=== PATIENT | female | born 1945 | race African-American/Black ===

== ENCOUNTER 2022-08-21 14:28 | Inpatient (IN) | payer MEDICAID, SELFPAY ==
[2022-08-21] VITALS (14 sets, daily range): BP systolic 172–248; BP diastolic 76–107; PULSE 69–97; RESP 16–24; TEMP 36.4–37.1; O2SAT 95–98; BMI 23.8; BMI 24.3
--- NOTE | 2022-08-21 | ECG_ITS ---
Test Reason : hypertension Blood Pressure : / mmHG Vent. Rate : 090 BPM Atrial Rate : 090 BPM P-R Int : 154 ms QRS Dur : 088 ms QT Int : 376 ms P-R-T Axes : 042 -03 075 degrees QTc Int : 459 ms Normal sinus rhythm Minimal voltage criteria for LVH, may be normal variant ( [place] product ) Nonspecific T wave abnormality Abnormal ECG No previous ECGs available Referred By: Generic ED Physician Electronically Signed By:FLAVIO OCONNELL MD
--- NOTE | ~2022-08-21 | CT_ITS ---
EXAMINATION: CT HEAD WITHOUT CONTRAST CLINICAL INFORMATION: Hypertension COMPARISON: None TECHNIQUE: Imaging was performed from the skull base to vertex without intravenous administration of contrast. This CT examination was performed using dose optimization techniques as appropriate, variously including the following: *Automated exposure control *Adjustment of mA and/or kV according to patient size (this includes techniques or standardized protocols for targeted exams where dose is matched to indication/reason for exam; i.e. extremities or head) *Use of iterative reconstruction technique Total exam dose length product: 675 mGy-cm FINDINGS: No intra or extra-axial fluid collection, hemorrhage, or mass. No ventriculomegaly. No midline shift or herniation. Basal cisterns are patent. Aleman-white matter differentiation is maintained. No territorial encephalomalacia. Proportional prominence of the ventricles and sulcal spaces is consistent with mild volume loss. Patchy periventricular and deep white matter hypoattenuation is consistent with moderate small vessel ischemic changes. Focus of hypoattenuation in the right lentiform nucleus consistent with prior lacunar infarct versus dilated perivascular space. No calvarial fracture or soft tissue abnormality. The mastoid air cells and visualized portions of the paranasal sinuses are well aerated. CT/CT head/brain wo IV con IMPRESSION: 1. No acute intracranial pathology. 2. Mild cerebral atrophy and moderate chronic small vessel ischemic white matter change.
[2022-08-21 16:42] LABS: MANUAL DIFF FLAG NO
[2022-08-21 16:44] LABS: Basophils Absolute Auto 0.1 X10*3/uL (0.0-0.2); Basophils Percent Auto 0.8 % (0-2); Eosinophils Absolute Auto 0.2 X10*3/uL (0.0-0.4); Eosinophils Percent Auto 2.8 % (0-4); Hematocrit 43.3 % (37.0-47.0); Hemoglobin 13.8 g/dl (12.0-16.0); Imm Gran Abs Auto 0.01 X10*3/uL (0.00-0.03); Imm Gran Pct Auto 0.1 % (0.0-0.4); Lymphocytes Absolute Auto 2.1 X10*3/uL (1.2-4.9); Lymphocytes Percent Auto 26.4 % (20-40); Mean Corpuscular HGB Conc 31.9 g/dl (31.0-35.0); Mean Corpuscular Hemoglobin 29.2 pg (27.0-33.0); Mean Corpuscular Volume 91.5 fL (80.0-98.0); Mean Platelet Volume 10.9 fL (9.4-12.3); Monocytes Absolute Auto 0.7 X10*3/uL (0.1-1.2); Monocytes Percent Auto 8.8 % (2-11); Neutrophils Absolute Auto 4.9 x10*3/uL (2.0-8.3); Neutrophils Percent Auto 61.1 % (45-73); Platelet Count 262 X10*3/uL (160-400); Red Blood Count 4.73 X10*6/uL (4.20-5.50)
[2022-08-21 17:04] LABS: Alanine Aminotransferase 18 U/L (0-31); Albumin Level 4.6 g/dL (3.5-5.0); Alkaline Phosphatase 153 U/L (39-117); Anion Gap 19 (12-20); Aspartate Amino Transferase 20 U/L (5-31); Bilirubin Direct < 0.2 mg/dL (0.0-0.5); Bilirubin Total 0.3 mg/dL (0.0-1.0); Blood Urea Nitrogen 17 mg/dL (9-16); Calcium 9.8 mg/dL (8.4-10.2); Carbon Dioxide 22 mmol/L (22-29); Chloride 102 mmol/L (96-108); Creatinine Clr Calc Pharmacy 41.4; Estimated Glomerular Filt Rate 49; Glucose Random 199 mg/dL (60-115); Lipase 16 U/L (8-78); Potassium 4.2 mmol/L (3.3-5.1); Sodium 139 mmol/L (135-145); Total Protein 8.2 g/dL (6.5-8.0); Troponin-I High Sensitivity 7.8 ng/L (<3.5-17.0)
--- NOTE | 2022-08-21 17:57 | ED.GENADULT ---
HPI - General Adult General Chief complaint: General Medical Stated complaint: high bp Time Seen by Provider: 08/21/22 17:51 Source: patient Mode of arrival: ambulatory Limitations: language barrier History of Present Illness HPI narrative: 77-year-old female presents to the emergency department from urgent care for a blood pressure of 224/98 earlier today. Patient reports she has not taken her blood pressure medication in over month due to not being able to get in with a PCP. Her daughter reports that she gave her some of her medication last night, after taking her blood pressure and reporting it was 200. Her daughter reports she gave her amlodipine 5 mg and losartan- hydrochlorothiazide. Patient denies headache, vision changes, chest pain, shortness of breath, weakness, changes in speech, dizziness, nausea, vomiting To note patient speaks Creole, offered patient registered nurse bone marrow transplant however refused, tells me that family member/daughter who is at the bedside would prefer to translate Related Data Allergies Allergy/AdvReac Type Severity Reaction Status Date / Time No Known Allergies Allergy Verified 08/21/22 15:54 Review of Systems Review of Systems: Constitutional : No Weight loss, No Fever, No Chills, No Fatigue, No Malaise ENT/Mouth : No sore throat, No Rhinorrhea Eyes: No Eye Pain, No Swelling, No Redness Cardiovascular : No Chest Pain, No SOB, No Dyspnea on Exertion, No Orthopnea, No Edema, No Palpitations Respiratory : No Cough, No Sputum, No Wheezing Gastrointestinal : No Nausea, No Vomiting, No Diarrhea, No Constipation, No abdominal Pain, No Hematochezia, No Melena Genitourinary : No Dysuria, No Urinary Frequency, No Hematuria, Musculoskeletal : No joint pain, No Myalgias, No Joint Swelling Skin : No Skin Lesions, No rash Neuro : No Weakness, No Numbness, No Dizziness, No Headache Psych : No Anxiety/Panic, No Depression All other systems reviewed and are negative Yes all other systems are reviewed and are negative PMFSH Past Medical History Attestation statement: The following information was validated with the patient. Source: old records reviewed and nursing notes reviewed Social History Social History Advance Directives: No Advance Directives Information Provided: No Physical Exam ED Vital Signs: Vital Signs - 24 hr 08/21/22 15:51 08/21/22 18:12 08/21/22 19:28 Temperature 97.6 F Pulse Rate 97 88 77 Respiratory Rate 20 18 18 Blood Pressure 240/94 H 239/107 H 230/99 H Pulse Oximetry 98 98 98 Oxygen Delivery Method Room Air Room Air Room Air 08/21/22 19:36 08/21/22 21:22 08/21/22 21:35 Temperature Pulse Rate 72 76 69 Respiratory Rate 16 23 H Blood Pressure 248/101 H 212/76 H 195/78 H Pulse Oximetry 97 98 98 Oxygen Delivery Method Room Air Room Air Room Air 08/21/22 21:44 08/21/22 22:34 Temperature Pulse Rate 72 72 Respiratory Rate 19 21 H Blood Pressure 208/80 H 216/104 H Pulse Oximetry 98 95 Oxygen Delivery Method Room Air Room Air BMI result Body Mass Index 24.3 BP noted to be elevated at 240/94. Appearance: Alert.? Oriented X3.? No acute distress.? Head: Normocephalic, atraumatic, no step-offs or deformities Eyes: Pupils equal, round and reactive to light.?EOMI pain free. No nystagmus Neck: Normal inspection.? Neck supple.? CVS: Normal heart rate and rhythm.? Pulses normal.? Respiratory: No respiratory distress.? Breath sounds normal.? Abdomen: Soft and nontender.? Skin: Skin warm and dry.? Normal skin color.? Normal skin turgor.? Extremities: No lower extremity edema.? No calf ttp. 5/5 strength to bilateral upper and lower extremities Back: No midline tenderness, no C-spine tenderness, full range of motion, no CVA tenderness bilaterally Neuro: Oriented X 3.? No motor deficit.? No sensory deficit. CN 2-12 intact. Normal finger to nose. Normal tandem gait with normal coordination. Normal rapid alternating movements. Course Reevaluation(s) Reevaluation #1: CBC within normal limits. Chemistry with no acute findings. Troponin negative, EKG nonischemic. No signs of ACS. Head CT with no acute findings. Patient's blood pressure not improving despite administering home meds. At this time 5 mg of IV labetalol will be administered. Patient remains asymptomatic no headache, vision changes, dizziness. Time: 19:15 Reevaluation #2: Pressure still elevated will give another 5 of labetalol and nitro paste. Time: 21:23 Reevaluation #3: Patient will be admitted to the ICU to Time: 23:03 Medical Decision Making MDM Narrative Medical decision making narrative: 77-year-old female presents from urgent care due to a blood pressure of 24 earlier today. Patient has not taken her blood pressure medication in over a month. Benign physical exam. Denies vision changes or headaches. CT pending. Lab Data Result diagrams: 08/21/22 16:39 08/21/22 16:39 Labs: Lab Results 08/21/22 08/21/22 08/21/22 Range/Units 16:39 16:39 16:39 WBC 8.0 (4.8-10.8) X10*3/uL RBC 4.73 (4.20-5.50) X10*6/uL Hgb 13.8 (12.0-16.0) g/dl Hct 43.3 (37.0-47.0) % MCV 91.5 (80.0-98.0) fL MCH 29.2 (27.0-33.0) pg MCHC 31.9 (31.0-35.0) g/dl RDW 13.0 (11.0-16.0) % Plt Count 262 (160-400) X10*3/uL MPV 10.9 (9.4-12.3) fL Immature Gran % (Auto) 0.1 (0.0-0.4) % Neut % (Auto) 61.1 (45-73) % Lymph % (Auto) 26.4 (20-40) % [place] % (Auto) 8.8 (2-11) % Eos % (Auto) 2.8 (0-4) % Baso % (Auto) 0.8 (0-2) % Lymph # (Auto) 2.1 (1.2-4.9) X10*3/uL [place] # (Auto) 0.7 (0.1-1.2) X10*3/uL Eos # (Auto) 0.2 (0.0-0.4) X10*3/uL Baso # (Auto) 0.1 (0.0-0.2) X10*3/uL Abs Immat Gran (auto) 0.01 (0.00-0.03) X10*3/uL Absolute Neuts (auto) 4.9 (2.0-8.3) x10*3/uL Absolute Nucleated RBC 0.000 (0.0-0.012) X10*3/uL Nucleated RBC % (auto) 0.0 (0.0-0.2) /100WBC Sodium 139 (135-145) mmol/L Potassium 4.2 (3.3-5.1) mmol/L Chloride 102 (96-108) mmol/L Carbon Dioxide 22 (22-29) mmol/L Anion Gap 19 (12-20) BUN 17 H (9-16) mg/dL Creatinine 1.07 (0.5-1.4) mg/dL Estim Creat Clear Calc 41.4 Estimated GFR 49 Random Glucose 199 H (60-115) mg/dL Calcium 9.8 (8.4-10.2) mg/dL Total Bilirubin 0.3 (0.0-1.0) mg/dL Direct Bilirubin < 0.2 (0.0-0.5) mg/dL AST 20 (5-31) U/L ALT 18 (0-31) U/L Alkaline Phosphatase 153 H (39-117) U/L Troponin I High Sens 7.8 (<3.5-17.0) ng/L Total Protein 8.2 H (6.5-8.0) g/dL Albumin 4.6 (3.5-5.0) g/dL Lipase 16 (8-78) U/L // Range/Units 20:40 WBC (4.8-10.8) X10*3/uL RBC (4.20-5.50) X10*6/uL Hgb (12.0-16.0) g/dl Hct (37.0-47.0) % MCV (80.0-98.0) fL MCH (27.0-33.0) pg MCHC (31.0-35.0) g/dl RDW (11.0-16.0) % Plt Count (160-400) X10*3/uL MPV (9.4-12.3) fL Immature Gran % (Auto) (0.0-0.4) % Neut % (Auto) (45-73) % Lymph % (Auto) (20-40) % [place] % (Auto) (2-11) % Eos % (Auto) (0-4) % Baso % (Auto) (0-2) % Lymph # (Auto) (1.2-4.9) X10*3/uL [place] # (Auto) (0.1-1.2) X10*3/uL Eos # (Auto) (0.0-0.4) X10*3/uL Baso # (Auto) (0.0-0.2) X10*3/uL Abs Immat Gran (auto) (0.00-0.03) X10*3/uL Absolute Neuts (auto) (2.0-8.3) x10*3/uL Absolute Nucleated RBC (0.0-0.012) X10*3/uL Nucleated RBC % (auto) (0.0-0.2) /100WBC Sodium (135-145) mmol/L Potassium (3.3-5.1) mmol/L Chloride (96-108) mmol/L Carbon Dioxide (22-29) mmol/L Anion Gap (12-20) BUN (9-16) mg/dL Creatinine (0.5-1.4) mg/dL Estim Creat Clear Calc Estimated GFR Random Glucose (60-115) mg/dL Calcium (8.4-10.2) mg/dL Total Bilirubin (0.0-1.0) mg/dL Direct Bilirubin (0.0-0.5) mg/dL AST (5-31) U/L ALT (0-31) U/L Alkaline Phosphatase (39-117) U/L Troponin I High Sens 7.7 (<3.5-17.0) ng/L Total Protein (6.5-8.0) g/dL Albumin (3.5-5.0) g/dL Lipase (8-78) U/L Critical Care Time Critical Care Time Critical Care Time: Yes Total Critical Care Time: 45 Attestation: I attest to this time spent taking care of the patient, obtaining history, physical, reviewing labs, imaging, speaking to my attending, speaking to specialist. Discharge Plan Discharge Clinical Impression: Hypertensive urgency Patient Disposition: Admitted As Inpatient
[2022-08-21] MEDS: Losartan Potassium 50 MG TABLET PO (18:08)
[2022-08-21] MEDS: hydroCHLOROthiazide 12.5 MG TABLET PO (18:08)
[2022-08-21] MEDS: amLODIPine Besylate 5 MG TABLET PO (18:08)
--- NOTE | 2022-08-21 18:22 | PC.NURSE ---
Pt resting comfortably on stretcher at this time. daughter at bedside assisting with translation. Pt took medications with no issue. Blood pressure in 230s, PA Karen aware. Pt states she is in no pain and is comfortable at this time
[2022-08-21] MEDS: Labetalol HCL 100 MG/20 ML VIAL IVPUSH ×2 (19:33→21:28)
[2022-08-21 21:06] LABS: Troponin-I High Sensitivity 7.7 ng/L (<3.5-17.0)
[2022-08-21] MEDS: Nitroglycerin 2 % Oint 1 GM Packet 0.5 INCH TRANSDERMA (21:28)
--- NOTE | 2022-08-21 21:33 | PC.NURSE ---
pt blood pressure continues to be elevated in the 200s, ELIZABETH Jones aware. More medications ordered and administered per MAR (Nitro cream and 5mg Labetalol). Will continue to monitor blood pressure for improvement. Pt states she is no pain and is comfortable at this time
[2022-08-21] MEDS: niCARdipine HCL 25 MG in 0.9 % Sodium Chloride 250 ML 52 MG IVCONT (23:21)
--- NOTE | 2022-08-21 23:54 | P.HPCC_ITS ---
History of Present Illness Date of Service: 08/21/22 Attending physician on admission: Gary Carlson Chief Complaint: high blood pressure Patient is a 76? year old female [place] Creole speaking only, with a past medical history of hypertension? who presented to the emergency room? with high blood pressure from urgent care.? According to the daughter? patient lives with granddaughter,? and reports several days of not being compliant with medication regimen.? Patient denies? headache, vision changes, chest pain, shortness a breath, weakness, dizziness,? nausea and vomiting. Blood pressure in the emergency room 239/107,? other vital signs within normal limits. ? Blood pressure continued to be elevated despite administration of amlodipine 5, losartan 50, hydrochlorothiazide 12.5,? nitro patch 0.5inch and labetalol 10.? Require nicardipine drip? initiation ? Patient being admitted to ICU for hypertensive urgency requiring nicardipine drip Review of Systems Review of Systems: as per HPI Yes all other systems are reviewed and are negative [facility] Past Medical History Medical History (Updated 08/22/22 @ 00:38 by Ciro Cabrera NP) Hypertension Social History Social History Advance Directives: No Advance Directives Information Provided: No Meds Allergies Allergy/AdvReac Type Severity Reaction Status Date / Time No Known Allergies Allergy Verified 08/21/22 15:54 Active Medications: Current Medications Enoxaparin Sodium (Enoxaparin Sodium 40 Mg/0.4 Ml Syringe) 40 mg SUBCUT BEDTIME ANCELMO Nicardipine HCl 25 mg/ Sodium (Chloride) 260 mls @ 0 mls/hr IVCONT .Q0M ANCELMO; Protocol Last Titration: 08/21/22 23:35 Dose: 3 mg/hr, 31.2 mls/hr Physical Exam Vital Signs: Vital Signs: Last Vital Signs Temp 98.7 F 08/21/22 23:33 Pulse 76 08/21/22 23:35 Resp 19 08/21/22 23:33 BP 172/79 H 08/21/22 23:35 Pulse Ox 96 08/21/22 23:33 O2 Del Method 08/21/22 23:24 BMI result Body Mass Index 24.3 ?General:? Alert oriented x person and place, no date. speaking full sentences.? Speech is well articulated.? Following all commands. ?HEENT:? Head is normocephalic, atraumatic, pupils equal round reactive to light accommodation bilaterally.? Extraocular movements appear intact.? Buccal mucosa is dry, Neck is supple without lymphadenopathy. ?Cardiac:? Clear S1-S2, no murmurs rubs or gallops. ?Pulmonary:? Clear to auscultation, no wheezes, rales or rhonchi. ?Abdomen:? Positive bowel sounds in all 4 quadrants.? Soft, nontender, no rebound or guarding.?? ?Musculoskeletal:? Moving all 4 extremities upon request, , there is no crepitus or tenderness.? The strength is 5/5 bilaterally and throughout all 4 extremities.? walking steady from stretcher to bed ?Skin:? Intact, no lesions, edema, erythema, clubbing or cyanosis.? No ulcers. ?Neurologic:? cranial nerves 2-12 are grossly intact.? No focal deficits noted.Motor strength as above.?? Vascular:? 2+ pulses upper and lower extremities distally.? Results Labs CBC and Chem 7: 08/21/22 16:39 08/21/22 16:39 Labs: Laboratory Results - last 24 hr 08/21/22 08/21/22 08/21/22 16:39 16:39 16:39 MCV 91.5 MCH 29.2 MCHC 31.9 RDW 13.0 Plt Count 262 MPV 10.9 Immature Gran % (Auto) 0.1 Neut % (Auto) 61.1 Lymph % (Auto) 26.4 [place] % (Auto) 8.8 Eos % (Auto) 2.8 Baso % (Auto) 0.8 Lymph # (Auto) 2.1 [place] # (Auto) 0.7 Eos # (Auto) 0.2 Baso # (Auto) 0.1 Abs Immat Gran (auto) 0.01 Absolute Neuts (auto) 4.9 Absolute Nucleated RBC 0.000 Nucleated RBC % (auto) 0.0 Anion Gap 19 Estim Creat Clear Calc 41.4 Estimated GFR 49 Random Glucose 199 H Calcium 9.8 Total Bilirubin 0.3 Direct Bilirubin < 0.2 AST 20 ALT 18 Alkaline Phosphatase 153 H Troponin I High Sens 7.8 Total Protein 8.2 H Albumin 4.6 Lipase 16 08/21/22 20:40 MCV MCH MCHC RDW Plt Count MPV Immature Gran % (Auto) Neut % (Auto) Lymph % (Auto) [place] % (Auto) Eos % (Auto) Baso % (Auto) Lymph # (Auto) [place] # (Auto) Eos # (Auto) Baso # (Auto) Abs Immat Gran (auto) Absolute Neuts (auto) Absolute Nucleated RBC Nucleated RBC % (auto) Anion Gap Estim Creat Clear Calc Estimated GFR Random Glucose Calcium Total Bilirubin Direct Bilirubin AST ALT Alkaline Phosphatase Troponin I High Sens 7.7 Total Protein Albumin Lipase Imaging Radiologist's Impressions: Impressions Head CT 08/21/22 18:07 IMPRESSION: 1. No acute intracranial pathology. 2. Mild cerebral atrophy and moderate chronic small vessel ischemic white matter change. Assessment and Plan (1) Hypertensive urgency: Status: Acute (2) Hypertension: Status: Acute Plan 76-year-old female? with? past medical history of hypertension and history of? medication noncompliance admitted with hypertensive? urgency Plan: Neuro:? ? No acute issues Cardiac: ? Hypertensive urgency,? patient? has history of noncompliance,? possible dementia, She is asymptomatic. ? Continue Cardene drip,? wean off as tolerated. Avoid rapid decrease in BP. Per daughter, pt SBP ranges 160-170s. Will avoid systolic < 160s. Pulmonary:? No acute issues. Renal: ? ? no acute issues Endo:? No acute issues.? GI:? No acute issues. ID: ? no acute issues Heme/Onc:? No acute issues. Psych:? No acute issues. Miscellaneous:? No acute issues. Prophylaxis:? ? Lovenox Diet: cardiac Critical care time spent:? 30 minutes Critical Care Time Critical Care Time (minutes): 30
[2022-08-22] VITALS (23 sets, daily range): BP systolic 134–186; BP diastolic 49–86; PULSE 55–95; RESP 12–24; TEMP 36.2–37.3; O2SAT 93–98; BMI 23.4
[2022-08-22] MEDS: Enoxaparin Sodium 40 MG/0.4 ML SYRINGE SUBCUT ×2 (00:12→21:20)
[2022-08-22 05:41] LABS: MANUAL DIFF FLAG NO
[2022-08-22 05:46] LABS: Basophils Absolute Auto 0.1 X10*3/uL (0.0-0.2); Basophils Percent Auto 0.6 % (0-2); Eosinophils Absolute Auto 0.3 X10*3/uL (0.0-0.4); Eosinophils Percent Auto 3.2 % (0-4); Hematocrit 39.2 % (37.0-47.0); Hemoglobin 12.9 g/dl (12.0-16.0); Imm Gran Abs Auto 0.03 X10*3/uL (0.00-0.03); Imm Gran Pct Auto 0.3 % (0.0-0.4); Lymphocytes Absolute Auto 2.4 X10*3/uL (1.2-4.9); Mean Corpuscular HGB Conc 32.9 g/dl (31.0-35.0); Mean Corpuscular Hemoglobin 29.8 pg (27.0-33.0); Mean Corpuscular Volume 90.5 fL (80.0-98.0); Monocytes Percent Auto 10.9 % (2-11); Neutrophils Absolute Auto 5.2 x10*3/uL (2.0-8.3); Platelet Count 276 X10*3/uL (160-400); Red Blood Count 4.33 X10*6/uL (4.20-5.50); Red Cell Distribution Width 12.8 % (11.0-16.0)
[2022-08-22 06:17] LABS: Albumin Level 4.1 g/dL (3.5-5.0); Anion Gap 16 (12-20); Blood Urea Nitrogen 13 mg/dL (9-16); Calcium 9.4 mg/dL (8.4-10.2); Carbon Dioxide 25 mmol/L (22-29); Chloride 103 mmol/L (96-108); Creatinine Clr Calc Pharmacy 47.9; Estimated Glomerular Filt Rate 58; Glucose Random 120 mg/dL (60-115); Phosphorus 5.6 mg/dL (2.7-4.5); Potassium 3.8 mmol/L (3.3-5.1); Sodium 140 mmol/L (135-145)
[2022-08-22] MEDS: amLODIPine Besylate 10 MG TABLET PO (08:44)
[2022-08-22] MEDS: Losartan Potassium 50 MG TABLET PO (08:44)
--- NOTE | 2022-08-22 09:19 | PHA.MEDREC ---
Pharmacy Consult ? Medication Reconciliation Pharmacy has completed the medication reconciliation. Patient's daugther report amlopdipine 5 mg and losartan-HCTZ 12.5. State meds were from [facility] on [address] but when I called [facility] they had nothing on record. Sheree Young, PharmD
--- NOTE | 2022-08-22 09:51 | MHC.CM.PN ---
Attempted to meet with pt to review d/c planning. Pt is [place] Creole speaking only: Interpreting services having difficulty finding assistance. Call placed to pt's dtr Eryn with whom pt resides. She states pt is independent and only requires set up and light cueing. No DME use. Eryn provides transportation. PCP is new at [facility] - last appt 08/21. No HCP or MOLST on file - Dtr to address w/PCP. - Vax x2 - no booster. D/C plan is for a return to home with existing family support. Eryn will transport. CM to follow.
--- NOTE | 2022-08-22 11:05 | P.PNCC_ITS ---
Subjective Subjective Date of Service: 08/22/22 Interval History: 76-year-old lady with underlying history of hypertension and poor compliance with outpatient antihypertensive regimen admitted on 08/21/2022 with hypertensive urgency requiring control with nicardipine drip. No events overnight. Titrated off nicardipine drip to p.o. antihypertensives. Critical Care Time (minutes): 0 Physical Exam Vital Signs: Vital Signs: Last Vital Signs Temp 98.7 F 08/22/22 08:00 Pulse 75 08/22/22 10:00 Resp 17 08/22/22 10:00 BP 166/64 H 08/22/22 10:00 Pulse Ox 93 08/22/22 10:00 O2 Del Method 08/22/22 10:00 BMI result Body Mass Index 23.4 Const: General: no acute distress, alert and awake Eyes: Sclerae: sclerae normal EOM: EOMs intact bilaterally Neck: Neck: Yes no lymphadenopathy, Yes trachea midline and Yes supple Resp: Effort & Inspection: normal respiratory effort and no respiratory distress Auscultation: clear to auscultation bilaterally Cardio: Rate: regular rate Rhythm: regular rhythm Heart sounds: no gallops, no murmurs and no rubs GI: Palpation (GI): Soft to palpation and Other GI palpation findings present ( Nontender) Auscultation: normal bowel sounds Extrem: General: Yes no pedal edema, No clubbing and No cyanosis Objective Data Labs CBC & Chem 7: 08/22/22 05:16 08/22/22 05:16 Labs: Laboratory Results - last 24 hr 08/21/22 08/21/22 08/21/22 16:39 16:39 16:39 WBC 8.0 RBC 4.73 Hgb 13.8 Hct 43.3 MCV 91.5 MCH 29.2 MCHC 31.9 RDW 13.0 Plt Count 262 MPV 10.9 Immature Gran % (Auto) 0.1 Neut % (Auto) 61.1 Lymph % (Auto) 26.4 [place] % (Auto) 8.8 Eos % (Auto) 2.8 Baso % (Auto) 0.8 Lymph # (Auto) 2.1 [place] # (Auto) 0.7 Eos # (Auto) 0.2 Baso # (Auto) 0.1 Abs Immat Gran (auto) 0.01 Absolute Neuts (auto) 4.9 Absolute Nucleated RBC 0.000 Nucleated RBC % (auto) 0.0 Sodium 139 Potassium 4.2 Chloride 102 Carbon Dioxide 22 Anion Gap 19 BUN 17 H Creatinine 1.07 Estim Creat Clear Calc 41.4 Estimated GFR 49 Random Glucose 199 H Calcium 9.8 Phosphorus Magnesium Total Bilirubin 0.3 Direct Bilirubin < 0.2 AST 20 ALT 18 Alkaline Phosphatase 153 H Troponin I High Sens 7.8 Total Protein 8.2 H Albumin 4.6 Lipase 16 08/21/22 08/22/22 08/22/22 20:40 05:16 05:16 WBC 9.0 RBC 4.33 Hgb 12.9 Hct 39.2 MCV 90.5 MCH 29.8 MCHC 32.9 RDW 12.8 Plt Count 276 MPV 12.0 Immature Gran % (Auto) 0.3 Neut % (Auto) 58.0 Lymph % (Auto) 27.0 [place] % (Auto) 10.9 Eos % (Auto) 3.2 Baso % (Auto) 0.6 Lymph # (Auto) 2.4 [place] # (Auto) 1.0 Eos # (Auto) 0.3 Baso # (Auto) 0.1 Abs Immat Gran (auto) 0.03 Absolute Neuts (auto) 5.2 Absolute Nucleated RBC 0.000 Nucleated RBC % (auto) 0.0 Sodium 140 Potassium 3.8 Chloride 103 Carbon Dioxide 25 Anion Gap 16 BUN 13 Creatinine 0.94 Estim Creat Clear Calc 47.9 Estimated GFR 58 Random Glucose 120 H Calcium 9.4 Phosphorus 5.6 H Magnesium 2.0 Total Bilirubin Direct Bilirubin AST ALT Alkaline Phosphatase Troponin I High Sens 7.7 Total Protein Albumin 4.1 Lipase Progress Note: A&P Assessment and plan (1) Hypertensive urgency: Status: Acute Plan Assessment: 76-year-old lady with underlying hypertension and poor medication compliance admitted with hypertensive urgency briefly requiring nicardipine drip now titrated off to p.o. antihypertensives. Plan: Neuro: No acute issues. Cardiac: Hypertensive urgency, resolved. Titrated off nicardipine drip. Continue p.o. antihypertensives. Pulmonary: No acute issues. Renal: No acute issues. Endo: No acute issues. GI: No acute issues. ID: No acute issues Heme/Onc: No acute issues. Psych: No acute issues. Miscellaneous: No acute issues. Prophylaxis: Heparin Diet: Regular Quality Stroke Does the patient have a stroke diagnosis?: No VTE Prior VTE?: No VTE Risk Level:: Medical - moderate - high VTE Device Contraindication: Treatment Not Indicated VTE Drug Contraindication: N/A - Med Ordered
--- NOTE | 2022-08-22 14:07 | PC.NURSE ---
1400-report called to EMILY Lira in [place]
[2022-08-23] VITALS: BP 174/79; PULSE 78; RESP 15; TEMP 36.9; O2SAT 98
[2022-08-23 03:26] VITALS: BP 169/75; PULSE 58; RESP 14; TEMP 36.7; O2SAT 97
[2022-08-23 06:00] VITALS: BMI 23.6
[2022-08-23 07:57] VITALS: BP 154/69; PULSE 76; RESP 16; TEMP 37.4; O2SAT 97
--- NOTE | 2022-08-23 09:09 | MHC.CM.PN ---
Addendum entered by Alejandra Solitario 08/23/22 12:10: Patient is ready for discharge today. Patient is discharged to home self care. She has arranged for family to provide transportation home. Original Note: Female 76 DX Hypertensive urgency. She is an ICU transfer. DP Home self care. Patients dtr will provide transportation at discharge.
[2022-08-23] MEDS: amLODIPine Besylate 10 MG TABLET PO (10:35)
[2022-08-23] MEDS: Losartan Potassium 50 MG TABLET 100 MG PO (10:36)
--- NOTE | 2022-08-23 11:43 | P.DS_ITS ---
DS: Providers Provider Date of Service: 08/23/22 Date of admission: 08/21/22 23:12 Date of discharge: 08/23/22 Primary care physician: Unknown Physician DS: Diagnosis Discharge Diagnosis (1) Hypertensive urgency: Status: Acute (2) Essential hypertension: Status: Acute DS: Summary Hospital Course Hospital Course: from admission H+P by acls specialist YAN Cabrera, 08/21/22: Patient is a 76? year old female French Creole speaking only, with a past medical history of hypertension? who presented to the emergency room? with high blood pressure from urgent care.? According to the daughter? patient lives with granddaughter,? and reports several days of not being compliant with medication regimen.? Patient denies? headache, vision changes, chest pain, shortness a breath, weakness, dizziness,? nausea and vomiting. Blood pressure in the emergency room 239/107,? other vital signs within normal limits. ? Blood pressure continued to be elevated despite administration of amlodipine 5, losartan 50, hydrochlorothiazide 12.5,? nitro patch 0.5inch and labetalol 10.? Require nicardipine drip? initiation ? Patient being admitted to ICU for hypertensive urgency requiring nicardipine drip She was titrated off the nicardipine drip to oral hypertensives, amlodipine plus losartan. She had no headache or chest pain. No renal insufficiency and no troponin elevation. No signs of stroke. She was discharged home with prescriptions for amlodipine 10 mg/d and losartan 100 mg/d and counseled in her cachil dehe language French Marco through vidoe interpretation on the importance of daily adherence and follow-up with a primary care doctor [she has a doctor at [facility] in [place]]. Time Spent with Patient Time attestation: Total time spent providing and/or coordinating discharge services: 35 Discharge coordination time: Greater than 30 minutes Quality: Safe Use of Opioids Does Pt have an Active Cancer Diagnosis on the Problem List?: No Quality: Stroke Does the patient have a stroke diagnosis?: No Physical Exam Vital Signs: Vital Signs: Last Vital Signs Temp 99.3 F 08/23/22 07:57 Pulse 76 08/23/22 07:57 Resp 16 08/23/22 07:57 BP 154/69 H 08/23/22 07:57 Pulse Ox 97 08/23/22 07:57 O2 Del Method 08/23/22 07:57 BMI result Body Mass Index 23.6 Gen: in no acute distress HEENT: sclera anicteric, moist mucus membranes Neck: supple Lungs: clear to auscultation bilaterally Heart: regular rate and rhythm, no murmurs Abd: soft, non-tender, non-distended Ext: no edema Skin: warm/well-perfused Neuro: alert and oriented x3, no focal findings Psych: appropriate affect DS: Data Data Completed and Pending Completed studies during hospitalization [Text1]: Laboratory Results WBC 9.0 X10*3/uL (4.8-10.8) 08/22/22 05:16 RBC 4.33 X10*6/uL (4.20-5.50) 08/22/22 05:16 Hgb 12.9 g/dl (12.0-16.0) 08/22/22 05:16 Hct 39.2 % (37.0-47.0) 08/22/22 05:16 MCV 90.5 fL (80.0-98.0) 08/22/22 05:16 MCH 29.8 pg (27.0-33.0) 08/22/22 05:16 MCHC 32.9 g/dl (31.0-35.0) 08/22/22 05:16 RDW 12.8 % (11.0-16.0) 08/22/22 05:16 Plt Count 276 X10*3/uL (160-400) 08/22/22 05:16 MPV 12.0 fL (9.4-12.3) 08/22/22 05:16 Immature Gran % (Auto) 0.3 % (0.0-0.4) 08/22/22 05:16 Neut % (Auto) 58.0 % (45-73) 08/22/22 05:16 Lymph % (Auto) 27.0 % (20-40) 08/22/22 05:16 [place] % (Auto) 10.9 % (2-11) 08/22/22 05:16 Eos % (Auto) 3.2 % (0-4) 08/22/22 05:16 Baso % (Auto) 0.6 % (0-2) 08/22/22 05:16 Lymph # (Auto) 2.4 X10*3/uL (1.2-4.9) 08/22/22 05:16 [place] # (Auto) 1.0 X10*3/uL (0.1-1.2) 08/22/22 05:16 Eos # (Auto) 0.3 X10*3/uL (0.0-0.4) 08/22/22 05:16 Baso # (Auto) 0.1 X10*3/uL (0.0-0.2) 08/22/22 05:16 Abs Immat Gran (auto) 0.03 X10*3/uL (0.00-0.03) 08/22/22 05:16 Absolute Neuts (auto) 5.2 x10*3/uL (2.0-8.3) 08/22/22 05:16 Absolute Nucleated RBC 0.000 X10*3/uL (0.0-0.012) 08/22/22 05:16 Nucleated RBC % (auto) 0.0 /100WBC (0.0-0.2) 08/22/22 05:16 Sodium 140 mmol/L (135-145) 08/22/22 05:16 Potassium 3.8 mmol/L (3.3-5.1) 08/22/22 05:16 Chloride 103 mmol/L (96-108) 08/22/22 05:16 Carbon Dioxide 25 mmol/L (22-29) 08/22/22 05:16 Anion Gap 16 (12-20) 08/22/22 05:16 BUN 13 mg/dL (9-16) 08/22/22 05:16 Creatinine 0.94 mg/dL (0.5-1.4) 08/22/22 05:16 Estim Creat Clear Calc 47.9 08/22/22 05:16 Estimated GFR 58 08/22/22 05:16 Random Glucose 120 mg/dL (60-115) H 08/22/22 05:16 Calcium 9.4 mg/dL (8.4-10.2) 08/22/22 05:16 Phosphorus 5.6 mg/dL (2.7-4.5) H 08/22/22 05:16 Magnesium 2.0 mg/dL (1.6-2.6) 08/22/22 05:16 Total Bilirubin 0.3 mg/dL (0.0-1.0) 08/21/22 16:39 Direct Bilirubin < 0.2 mg/dL (0.0-0.5) 08/21/22 16:39 AST 20 U/L (5-31) 08/21/22 16:39 ALT 18 U/L (0-31) 08/21/22 16:39 Alkaline Phosphatase 153 U/L (39-117) H 08/21/22 16:39 Troponin I High Sens 7.7 ng/L (<3.5-17.0) 08/21/22 20:40 Total Protein 8.2 g/dL (6.5-8.0) H 08/21/22 16:39 Albumin 4.1 g/dL (3.5-5.0) 08/22/22 05:16 Lipase 16 U/L (8-78) 08/21/22 16:[address] 08/21/22 18:07 IMPRESSION: 1. No acute intracranial pathology. 2. Mild cerebral atrophy and moderate chronic small vessel ischemic white matter change. Discharge Plan Discharge Anticipated Discharge Date/Time: 08/23/22 11:37 Patient Disposition: Home, Self-Care Discharge Diagnosis: hypertensive urgency Referrals: [facility] Eunice Hooker [Provider Group] - 1 Week Physician,Eitan J [Primary Care Provider] - 1 Week Discharge Medications: New amlodipine 10 mg Tablet 10 mg PO DAILY Qty: 30 1RF Protocol: Hold for SBP< HOLD for SBP < : 90 losartan 100 mg tablet 100 mg PO DAILY Qty: 30 0RF Continued amlodipine 5 mg Tablet 5 mg PO DAILY losartan-hydrochlorothiazide 50-12.5 mg Tablet 1 tab PO DAILY Discharge Orders: Discharge Order (Routine); Ordered 08/23/22 Ordered By: Juan David Phan Diet: Low fat, low cholesterol Activity on Discharge: As tolerated Stand Alone Forms: Patient Portal Discharge page Care Plan Goals: prevention of stroke and other complications of high blood pressure Health Concerns: hypertensive urgency Plan of Treatment: take amlodipine 10 mg daily PLUS losartan 100 mg daily check your blood pressure daily at home. low-sodium diet. Please follow up with your primary care doctor within 1 week. Return to the hospital if you experience recurrent or worsening symptoms. Assessment: See Discharge Summary.
[2022-08-23 12:00] VITALS: BP 179/79; PULSE 84; RESP 16; TEMP 36.6; O2SAT 97
== END 2022-08-23 13:30 | disposition home or self-care (01) | DRG 199 ==
LOC: HO.ED 23:07 → HO.EDOVER 23:19 → HO.ICU 23:22 → HO.IMC 08-22 14:03
PROVIDERS: Emergency Medicine; Physician Assistant; Admitting Provider Registered Nurse Community Health; Emergency Provider Emergency Medicine; PCP Nurse Practitioner Pediatrics; Visit Provider Family Medicine
DX: I16.0 Hypertensive urgency (principal); Z79.899 Other long term (current) drug therapy; I10 Essential (primary) hypertension; Z91.14 Patient's other noncompliance with medication regimen
CPT/HCPCS: 36415; 70450; 80048; 80076; 82040; 83690; 83735; 84100; 84484; 85025; 93005; 99285; J1650